=== PATIENT | female | born 1985 | race Caucasian/White ===

== ENCOUNTER → 2018-11-03 | Outpatient (CLI) | payer OTHER ==
[~2018-11-03] MED LIST: BIRTH CONTROL PILL; LIORESAL 10 MG10 MG PO; ULTRAM50 MG PO
== END ==
LOC: M.ULTRA 08:40
DX: E04.1 Nontoxic single thyroid nodule (principal)

== ENCOUNTER 2020-10-15 18:41 | Emergency (ER) | payer OTHER ==
[~2020-10-15] VITALS: Ht 162.6 cm; Wt 70.3 kg
[2020-10-15 19:21] LABS: ABSOLUTE LYMPHOCYTES 1.6 thou/uL (0.8-5.3); ABSOLUTE MONOCYTES 0.4 thou/uL (0.0-1.2); ABSOLUTE NEUTROPHILS 2.2 thou/uL (1.6-8.1); BASOPHILS 0.8 %; EOSINOPHILS 0.2 %; HEMATOCRIT 43.8 % (37.0-47.0); HEMOGLOBIN 14.7 gm/dL (12.0-15.0); LYMPHOCYTES 37.5 %; MCH 29.4 pg (26.0-34.0); MCHC 33.6 g/dL (28.0-37.0); MCV 87.5 fL (80.0-100.0); MONOCYTES 9.5 %; MPV 7.7 fl. (7.2-11.1); NUCLEATED RBCS 0 /100WBC; PLATELET COUNT* 268 thou/uL (150-400); RBC 5.01 mil/uL (4.20-5.00); RDW-CV 12.5 % (10.5-14.5); WBC 4.2 thou/uL (4.0-11.0)
[2020-10-15 19:31] LABS: CALCIUM 8.9 mg/dL (8.5-10.1); CREATININE 0.9 mg/dL (0.6-1.3); POTASSIUM 3.1 mmol/L (3.5-5.1)
[2020-10-15 19:41] LABS: ALBUMIN 3.9 g/dL (3.4-5.0); TOTAL BILIRUBIN 0.4 mg/dL (<0.1-1.0); TOTAL PROTEIN 7.3 g/dL (6.4-8.2)
[2020-10-15] MEDS ORDERED: ZOFRAN ODT4 MG PO (20:25)
[2020-10-15] MEDS ORDERED: VENTOLIN HFA 1818 GM INH (20:25)
[2020-10-15 20:56] VITALS: BP 115/73
--- NOTE | 2020-10-16 11:07 | EKG ---
[place] [address] ELECTROCARDIOGRAM REPORT Name: RUI BORJAS Opal Room: [facility]#: [id number] Admission: 10/15/20 Attend Phys: Discharge: 10/15/20 Date of : 89 Date of Service: 10/15/201931 Report #: [id number] THIS REPORT FOR: //name// [facility] ED Test Date: 2020-10-15 Test Time: 19:32:00 Pat Name: RUI BORJAS Department: Room: Gender: F Last Marker: LAURA : 1985 Requested By: Landy Marcum Order Number: [id number] MD: Michael South Measurements Intervals Priddy Rate: 72 P: 59 CT: 160 QRS: 52 QRSD: 91 T: 31 QT: 406 QTc: 445 Interpretive Statements Sinus rhythm No previous ECG available for comparison Electronically Signed On 10-16-2020 11:06:53 [employer] by Michael South [email or web address] <ELECTRONICALLY SIGNED> By: Michael South MD, [facility] 10/16/20 1106 31 31 Michael South MD, FAC /EPI
== END 2020-10-15 20:56 | disposition home or self-care (01) ==
LOC: M.ERS 18:41
PROVIDERS: Nurse Practitioner Family
DX: U07.1 COVID-19 (principal); E87.6 Hypokalemia